=== PATIENT | female | born 1990 | race Caucasian/White ===

== ENCOUNTER 2020-05-30 11:10 | Outpatient (CLI) | payer OTHER, SELFPAY ==
--- NOTE | 2020-05-30 11:33 | US_ITS ---
WS: [id number] EARLY OBSTETRICAL ULTRASOUND (<14 WEEKS). HISTORY: VERIFICATION COMPARISON: None available. Single intrauterine gestational sac is identified. Cardiac activity at 167 BPM. [place]-rump length clarita sures 2.9 cm which corresponds to a gestation of 9w5d. Normal-appearing yolk sac and amnion demonstra becky. No subchorionic hemorrhage. No free fluid. Normal size ovaries with no mass. Closed cervix is normal length at 3.8 cm. US/US OB <=14 wk fetus w transvag IMPRESSION: 1. Single intrauterine gestation of 9 weeks 5 days with an EDC of 12/28/2020. 2. Normal cardiac activity.
== END 2020-05-30 11:11 | disposition home or self-care (01) ==
LOC: RAD 11:29
PROVIDERS: PCP Family Medicine; Visit Provider Obstetrics & Gynecology
DX: Z34.91 Encounter for supervision of normal pregnancy, unspecified, first trimester (principal); Z3A.09 9 weeks gestation of pregnancy
CPT/HCPCS: 76801; 76817

== ENCOUNTER 2020-07-04 14:06 | Outpatient (CLI) | payer OTHER, SELFPAY ==
--- NOTE | 2020-07-04 14:14 | US_ITS ---
WS: [id number] ULTRASOUND OB LIMITED TECHNIQUE: Limited ultrasound examination of the fetus. LMP March 27, 2020 CLINICAL INFORMATION: ABSENT HEART TONES/ WELL BEING COMPARISON: May 30, 2020 FINDINGS: Cervix is closed measuring 3.4 cm. Estimated gestational age 14 weeks 1 day with estimated delivery 2020 Single interuterine gestation. Placental location is anterior. Placenta grade: 0. heart rate 150 BPM. US/[place] [id number] IMPRESSION: 1. Normal cardiac activity 150 bpm. 2. Cervix is closed measuring 3.4 cm.
== END 2020-07-04 14:07 | disposition home or self-care (01) ==
LOC: RAD 14:09
PROVIDERS: PCP Family Medicine; Visit Provider Family Medicine
DX: O36.8990 Maternal care for other specified fetal problems, unspecified trimester, not applicable or unspecified (principal)
CPT/HCPCS: 76816

== ENCOUNTER 2020-08-24 09:20 | Outpatient (CLI) | payer OTHER, SELFPAY ==
--- NOTE | 2020-08-24 09:30 | US_ITS ---
WS: [id number] OBSTETRICAL ULTRASOUND COMPLETE HISTORY: ANATOMY COMPARISON: 07/04/2020 and 05/30/2020 Single intrauterine gestation in breech presentation. Cervix is Closed and normal length. Cervical length is 3.7 cm. Normal amount of amniotic fluid surrounds the fetus. Placenta: Anterior, no previa or abruption. Placenta grade 1 Heart: 147 BPM. 4 chamber heart is identified. Outflow tracts. Normal. Anatomy: Intracranial structures and spine are normal. kidneys, stomach and urinary bladd er are unremarkable. Abdominal wall, three-vessel cord and cord insertion site are normal. 4 extremities are present. profile: Poorly visualized due to hands obscuring the face. Gender: Female. measurements: BPD = 5.2 cm = 21w5d HC = 19.5 cm = 21w5d AC = 15.3 cm =20 w4 d FL = 3.62 cm = 21w3d EFW: 397 g. Biometry is internally concordant. AGA by ultrasound: 21 weeks 3 days PAIGE by ultrasound: 01/01/2021 Appropriate growth since the first trimester ultrasound. US/US OB >= 14 weeks fetus [id number] IMPRESSION: 1. Single intrauterine gestation of 21 weeks 3 days with an PAIGE of 01/01/2021. Appropriate growth since the first trimester ultrasound. 2. Poor visualization of the face as the hands are obscuring the face. O therwise anatomy is negative.
== END 2020-08-24 09:21 | disposition home or self-care (01) ==
PROVIDERS: PCP Family Medicine; Visit Provider Family Medicine
DX: Z34.82 Encounter for supervision of other normal pregnancy, second trimester (principal); Z3A.21 21 weeks gestation of pregnancy
CPT/HCPCS: 76805

== ENCOUNTER 2020-09-24 16:19 | Emergency (ER) | payer OTHER, SELFPAY ==
[2020-09-24 16:39] VITALS: BP 134/85; PULSE 91; RESP 18; TEMP 37.1; O2SAT 99; BMI 31.6
--- NOTE | 2020-09-24 16:55 | XRR_ITS ---
PROCEDURE INFORMATION: Exam: XR Left Hand Exam date and time: 09/24/2020 5:08 PM Age: 30 years old Clinical indication: Injury or trauma; Other: Crushed left hand attn: Fifth digit; Bleeding/hemorrhage; Injury date: 09/24/2020 TECHNIQUE: Imaging protocol: XR Left hand. Views: 3 or more views. COMPARISON: No relevant prior studies available. FINDINGS: Bones/joints: Mildly displaced fracture through the terminal tuft of the left 5th finger. The other bones are intact and in normal alignment. Soft tissues: Soft tissue laceration or crush injury in the tip of the left 5th finger. XR/XR hand LT 2V [id number] IMPRESSION: 1. Left 5th terminal tuft fracture.
--- NOTE | 2020-09-24 17:10 | W.ED.WOUNDLC ---
HPI - Wound/Laceration General: Chief Complaint: Wound/Laceration Stated Complaint: left hand injury Time Seen by Provider: 09/24/20 17:04 History of Present Illness: HPI narrative: Patient is a 30-year-old 26-week female comes to the ED with a left hand injury. 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 She says that some dairy cows went through this gait and caused the other side of the gait to smash the tip of her fifth digit on the left hand. She describes her pain is mild but does have a laceration to the tip pad of her fifth digit. Associated symptoms: Denies chills, fever(s), nausea or vomiting Review of Systems Const: Denies: fever(s), chills or fatigue Eyes: Denies: change in vision or eye discomfort ENMT: Denies: throat pain, odynophagia, nasal discharge or nasal congestion Card: Denies: chest pain, palpitations, edema, swelling of feet/ankles, dyspnea on exertion or orthopnea Resp: Denies: dyspnea, productive cough or non-productive cough GI: Denies: abdominal pain, nausea, vomiting, diarrhea, constipation or hematochezia : Denies: flank pain, dysuria or hematuria Musc: Reports: extremity pain (left hand injury-distal end of 5th digit); Denies: neck pain, back pain or extremity swelling Skin/Breast: Denies: rash or new lesions Neuro: Denies: headache(s), numbness in extremities or weakness in extremities PFS ED PFSH: Social History Smoking and tobacco status: never smoked Second hand smoke exposure: No Alcohol intake: never Desire information about alcohol rehabilitation?: No Desire information about substance/drug rehabilitation?: No History of recent travel: No Current gender identity: Female Physical Exam Const: COMMON NORMALS: no acute distress, patient oriented x3, healthy appearing and alert GENERAL APPEARANCE: cooperative and comfortable HENMT: COMMON NORMALS: normocephalic HEAD & SCALP: normocephalic MOUTH: Normal oral and palatal mucosa present THROAT: posterior oropharynx normal and uvula midline Neck/C-Spine: COMMON NORMALS: supple GENERAL: Yes normal visual inspection Resp: COMMON NORMALS: normal respiratory effort, No retractions, No use of accessory muscles and clear to auscultation bilaterally AUSCULTATION: clear to auscultation bilaterally Cardio: COMMON NORMALS: regular rate, regular rhythm, S1 normal heart sound present, S2 normal heart sound present, No gallops present (Cardio), No clicks present (Cardio), No murmurs present (Cardio) and Peripheral pulses 2+ throughout RATE: regular rate RHYTHM: regular rhythm HEART SOUNDS: S1 normal heart sound present and S2 normal heart sound present PERIPHERAL PULSES: Peripheral pulses 2+ throughout GI: COMMON NORMALS: Normal to inspection, nondistended, normoactive bowel sounds present, Soft to palpation, non-tender and no masses PALPATION: Yes Soft to palpation : COMMON NORMALS: Yes no CVA tenderness BLADDER/KIDNEY EXAM: Yes no CVA tenderness Back/Pelvis: COMMON NORMALS: no CVA tenderness Extremity: NARRATIVE EXTREMITY EXAM: Left hand?fifth digit?patient has laceration to the pad of fifth digit tip. Laceration is superficial, linear and 1 cm in length. She has a subungual hematoma present but no other visible nail damage seen. Laceration appears clean. GENERAL: Yes normal exam except as noted Neuro: COMMON NORMALS: patient oriented x3 and moves all extremities SENSORIUM/ORIENTATION: Yes alert Skin: GENERAL SKIN EXAM: dry skin Procedures Laceration Laceration 1: Site: hand (Tip of 5th digit) Side (If applicable): left Size (cm): 1 Description: linear and clean Depth: simple, single layer Local Anesthetic: lidocaine 2% and other anesthetic (digital block used) Amount of anesthesia used (mL): 10 Pre-repair: irrigated extensively (With normal saline and cleaned with iodine as well.) Skin layer closed with: nylon Size (cm): 4-0 Number of sutures: 5 Technique: simple, interrupted Nerve Block Nerve Block 1: Time out performed: Yes Local Anesthetic: lidocaine 2% Amount of anesthesia used (mL): 10 Side: left Nerve Blocks: digital (5th digit) Procedure Successful: Yes Patient Tolerated Procedure: well Complications: none Course Vital Signs: Vital signs: Vital Signs Temperature 98.7 F 09/24/20 16:39 Pulse Rate 91 09/24/20 16:39 Respiratory Rate 15 09/24/20 17:44 Blood Pressure 134/85 09/24/20 16:39 Pulse Oximetry 99 09/24/20 16:39 MDM - Wound/Laceration MDM Narrative: Medical decision making narrative: Patient is a 30-year-old female comes to the ED with crush injury to distal end of fifth digit on left hand. Patient has a laceration on distal pad of fifth digit. X-ray of left hand shows distal phalanx tuft fracture. I performed a digital block on patient's fifth digit using lidocaine 2%. I then closed the laceration with 5 sutures. Patient tolerated procedure well and for further details see procedure notes. Patient was put on a prescription for Keflex and discharged home in a finger splint. She was told to follow-up with her PCP in 7 to 10 days to reexamine laceration and to get sutures removed. She was told to continue to follow-up for her distal phalanx fracture with PCP. Patient understood and agreed with plan. Imaging Data^: Xray Ortho: Attestation: I personally reviewed and interpreted this imaging study as follows: My impression: Left hand x-ray?patient has a 5th digit distal tuft fracture that is nondisplaced Discharge Plan Discharge Patient Disposition: Home Clinical Impression: Open fracture of tuft of distal phalanx of finger, Laceration Condition: Stable Prescriptions: New cephalexin 500 mg capsule 500 mg PO Q6H 7 Days Qty: 28 RF: 0 No Action [id number] [Bromfed DM] 2-30-10 mg/5 mL syrup 7.5 ml PO Q6H PRN (Reason: cold symptoms) Qty: 160 RF: 0 Discharge Orders: Discharge ED (Routine); Ordered 09/24/20 Ordered By: Joe Everett Referrals: Joe Dolan MD [Primary Care Provider] - Discharge Diet: Regular Discharge Activity: Limit activity as instructed Patient Instructions: Fractures - Phalanx (Finger), Suture Care (ED), Laceration (ED) Activity Restrictions/Additional Instructions: Take full course of antibiotics as prescribed. Keep splint on and limit activity with left hand until cleared by PCP. Only remove finger splint to rebandage finger. Keep laceration site clean and dry for the next 48 hours. Then after that you can clean and re-bandage daily. Watch for signs of infection such as redness, warmth, increased tenderness and puslike drainage. If you see the signs of infection return to the ED, urgent care or PCP for reevaluation. call your PCP to schedule a follow-up appointment for reevaluation and suture removal in about 10 days. Continue taking all home meds. Follow discharge plans as discussed. You can return to the ED if symptoms worsen. 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
[2020-09-24 17:44] VITALS: RESP 15
[2020-09-24] MEDS: cephALEXin 500 mg Capsule PO (18:16)
[2020-09-24] MEDS: HYDROcodone-acetaminophen 5-325 mg Tablet 1 TAB PO (18:17)
[2020-09-24] MEDS: lidocaine 2% INJ 20 mL INJECTION (18:17)
== END 2020-09-24 19:12 | disposition home or self-care (01) ==
PROVIDERS: Emergency Provider Physician Assistant; PCP Family Medicine
DX: O9A.212 Injury, poisoning and certain other consequences of external causes complicating pregnancy, second trimester (principal); S62.667B Nondisplaced fracture of distal phalanx of left little finger, initial encounter for open fracture; W23.0XXA Caught, crushed, jammed, or pinched between moving objects, initial encounter; Z3A.26 26 weeks gestation of pregnancy
CPT/HCPCS: 12001; 73120; 99283

== ENCOUNTER 2020-12-19 14:05 | Outpatient (CLI) | payer OTHER, SELFPAY ==
--- NOTE | 2020-12-19 14:15 | US_ITS ---
WS: [id number] ULTRASOUND OB LIMITED TECHNIQUE: Limited ultrasound examination of the fetus. CLINICAL INFORMATION: LARGE FOR GESTATION AGE FETUS COMPARISON: None. FINDINGS: Closed Cervix measures 3.1 cm Single interuterine gestation. presentation is cephalic Placental location is anterior. Placenta grade: 2 heart rate 147 BPM. CHIOMA 9.98 Anatomy: BDP: 9.2 cm = 37w1d HC: 33.4 cm = 38w2d AC: 35.7 cm = 39w5d FEMUR LENGTH: 7.5 cm = 38w1d Estimated weight: 3606 g EGA by ultrasound: 38w2d PAIGE by ultrasound: 12/31/2020 US/[place] [id number] IMPRESSION: 1. Single intrauterine gestation with cephalic presentation. 2. EGA by ultrasound: 38w2d 3. PAIGE by ultrasound: 12/31/2020 4. Cervix is long and closed. 5. CHIOMA 9.98, greater than the 5th percentile and below the median for gestatio nal age.
== END 2020-12-19 14:06 | disposition home or self-care (01) ==
LOC: US 14:12
PROVIDERS: PCP Family Medicine; Visit Provider Family Medicine
DX: O36.63X0 Maternal care for excessive fetal growth, third trimester, not applicable or unspecified (principal); Z3A.38 38 weeks gestation of pregnancy
CPT/HCPCS: 76816

== ENCOUNTER 2020-12-31 21:33 | Outpatient (CLI) | payer OTHER, SELFPAY ==
[2020-12-31 21:51] VITALS: BP 137/91; PULSE 100
[2020-12-31 21:54] VITALS: BMI 33.0
[2020-12-31 22:25] VITALS: BP 131/81; PULSE 92; TEMP 36.4
[2020-12-31 23:08] VITALS: BP 131/81; PULSE 92; TEMP 36.4
== END 2020-12-31 22:51 | disposition home or self-care (01) ==
LOC: OPOB 21:39 → OBGYN 21:40
PROVIDERS: PCP Family Medicine; Visit Provider Family Medicine
DX: O36.8190 Decreased fetal movements, unspecified trimester, not applicable or unspecified (principal); Z3A.00 Weeks of gestation of pregnancy not specified
CPT/HCPCS: 59025; 99211

== ENCOUNTER 2021-01-03 04:55 | Inpatient (IN) | payer OTHER, SELFPAY ==
[2021-01-03] VITALS (23 sets, daily range): BP systolic 115–135; BP diastolic 60–89; PULSE 60–83; RESP 17–18; TEMP 36.6–36.9; O2SAT 95–100; BMI 33.0
--- NOTE | 2021-01-03 06:40 | P.HP_ITS ---
Providers/Chief Complaint Admitting Physician: Joe Dolan MD Primary Care Provider: Joe Dolan MD Chief Complaint: History of Present Illness Clementina Krishnamurthy is a 30 year old at 40.2 weeks gestation by LMP consistent with 9-week ultrasound. Her is complicated by history of LGA infant weighing 10 pounds 8 ounces with prior section, low progesterone on supplementation in first trimester. The patient presents to labor and delivery for a scheduled section. She is in good health and denies any chest pains, shortness of breath, fever, nausea, vomiting, diarrhea, constipation. The patient cervix was closed thick and high upon presentation today. The patient has decided against having a bilateral tubal ligation. Medications/Allergies Home Medications Medication Instructions Recorded Confirmed Last Taken Type vit [id number] pkg PO 01/03/21 1 Day Ago History [ + DHA] ~01/02/21 Allergies Allergy/AdvReac Type Severity Reaction Status Date / Time No Known Allergies Allergy Verified 01/03/21 05:47 PFSH Acute PFSH: Surgical History (Updated 01/03/21 @ 06:43 by Joe Dolan MD) History of laparoscopy Previous section Social History Smoking and tobacco status: never smoked Second hand smoke exposure: No Alcohol intake: never Desire information about alcohol rehabilitation?: No Desire information about substance/drug rehabilitation?: No History of recent travel: No Current gender identity: Female Female Reproductive History: : 4 Vitals/I&O/Wt Last Vital Signs Pulse 82 01/03/21 05:16 BP 135/89 01/03/21 05:16 Weight last 48 hrs Weight 244 lb Physical Exam Narrative: EXAM NARRATIVE: General: Alert and oriented x3 Eyes: Pupils equal round and reactive to light and accommodation Mouth: Mucous membranes moist, pharynx non-erythematous Cardiac: Regular rate and rhythm without murmurs Lungs: Clear to auscultation bilaterally without wheezes, crackles or rhonchi Abdomen: Soft, non-tender, fundus consistent with gestational age Extremities: +1 pitting edema in the bilateral lower extremities A&P Additional A&P Information The patient is doing well at this time. heart tones have a category 1 tracing. The patient is mariusz every 6 minutes and they are not painful. The patient has not been making any cervical change and is not a candidate for at this time. We will proceed with repeat low-transverse section without tubal ligation. I discussed the risks and complications with the patient and her and they are in agreement with proceeding with the current plan of care. All questions were answered. Attestations Medical Necessity Statement*: The patient be here for greater than 2 midnights due to routine intrapartum and management of labor and delivery. 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
[2021-01-03 06:55] LABS: Basophils % 0.4 %; Eosinophils # 0.1 10^3/uL (0.0-0.8); Eosinophils % 1.1 %; Hematocrit 40.7 % (37.0-47.0); Hemoglobin 13.2 g/dL (11.5-15.3); Lymphocytes # 2.5 10^3/uL (0.8-4.8); Mean Corpuscular HGB Conc 32.4 g/dL (30.0-36.0); Mean Corpuscular Hemoglobin 30.3 pg (28.0-34.0); Mean Corpuscular Volume 93.6 fl (81-99); Mean Platelet Volume 12.9 fL (7.4-10.4); Monocytes # 0.7 10^3/uL (0.2-0.9); Neutrophils # 5.94 10^3/uL (1.8-7.7); Neutrophils % 64.2 %; Nucleated Red Blood Cells % 0 %; Platelet Count 227 10^3/cmm (130-400); Red Blood Count 4.35 10^6/uL (4.1-5.3); Red Cell Distribution Width 13.2 % (12.1-15.1); White Blood Count 9.3 10^3/uL (4.0-10.0)
--- NOTE | 2021-01-03 07:29 | ANES.PREANE2 ---
Pre-Anesthetic Assessment Pre-Anesthetic Assessment: Height/Weight: Height 1.83 m Weight 110.677 kg Pulse BP 82 135/89 01/03/21 05:16 01/03/21 05:16 Preop Diagnosis: previous C/S Proposed Procedure: Operation Date: 01/03/21 08:00 Proposed Procedures p Section Repeat With Tubal(Not Applicable) - Joe Dolan MD Was Beta William taken within 24 hours: N/A Was Clonidine taken within 24 hours: N/A Social: Social History: No alcohol and No tobacco Exam: Pre-Anes Outpt Exam: alert, oriented x 3, clear to auscultation bilaterally and regular rate & rhythm Airway: Submandibular: WNL Cervical ROM: WNL MP: 1 Dentition: Full History/ROS: No significant history except as noted Pulmonary: Pulmonary: None reported CV/HEM: CV/HEM: None reported : : None reported Hepatic: Hepatic: None reported GI: GI: GERD Metabolic: Metabolic: None reported Musc/skel: Musc/skel: None reported Neuropsych: Neuropsych: None reported Anesthetic Plan: ASA status: 2 Anesthesia: Regional (specify below) Other: SAB Risk of > 500 ml blood loss (7ml/kg in children): Yes, adequate IV access and fluids planned PFSH Anesthesia PFSH: Surgical History (Updated 01/03/21 @ 06:43 by Joe Dolan MD) History of laparoscopy Previous section Social History Smoking and tobacco status: never smoked Second hand smoke exposure: No Alcohol intake: never Desire information about alcohol rehabilitation?: No Desire information about substance/drug rehabilitation?: No History of recent travel: No Current gender identity: Female Female Reproductive History: : 4 Data Anesthesia CBC & Chem 7: 01/03/21 05:00 Other Labs: Laboratory Results - last 48 hr 01/03/21 05:00 WBC 9.3 RBC 4.35 Hgb 13.2 Hct 40.7 MCV 93.6 MCH 30.3 MCHC 32.4 RDW 13.2 Plt Count 227 MPV 12.9 H Neut % (Auto) 64.2 Lymph % (Auto) 27.0 [place] % (Auto) 7.0 Eos % (Auto) 1.1 Baso % (Auto) 0.4 Neut # (Auto) 5.94 Lymph # (Auto) 2.5 [place] # (Auto) 0.7 Eos # (Auto) 0.1 Baso # (Auto) 0.0 Nucleated RBC % (auto) 0 Nucleated RBCs # 0.0 Cardiac Studies: No Data to Display
[2021-01-03] MEDS: lactated ringers 1,000 ML 999 ML IV (07:31)
[2021-01-03] MEDS: citric acid-sodium citrate 30 mL UDC PO (07:44)
[2021-01-03] MEDS: metoclopramide 5 mg/mL SDV 2 mL 10 MG IVP (07:44)
[2021-01-03] MEDS: famotidine 20 mg/2 mL INJ IVP (07:45)
--- NOTE | 2021-01-03 09:52 | PM.OP ---
Operative Report Date of procedure: January 03, 2021 Pre-op Diagnosis: previous C/S Pre-op Diagnosis: 1. Intrauterine at 40.2 weeks gestation 2. Prior low-transverse section here for repeat low-transverse section Post-op Diagnosis: 1. Intrauterine repeat low-transverse section at 40.2 weeks gestation 2. History of section 3. Very thin (transparent) lower uterine segment 4. Delivery of healthy female weighing 9 pounds 13 ounces with Apgars of 9 and 9 Post-op Findings: 1. The lower uterine segment was very thin prior to incision and the infant's head can be seen through the lower uterine segment. 2. Healthy female weighing 9 pounds 13 ounces 3. Intact placenta with central umbilical cord insertion site. Procedure Done: Repeat low transverse section. Specimens removed/disposition: Placenta discarded Surgeon: Joe Dolan Anesthesia: Other (Spinal) Estimated blood loss (mL): 450 Complications: None Condition: stable Disposition: floor Brief History: Clementina is a 30-year-old status post repeat low transverse section at 40.2 weeks gestation. Her is complicated by prior low-transverse section. She presented for a scheduled repeat low-transverse section. Procedure: After informed consent was obtained, the patient was taken to the operating room and the patient was prepped and draped in a normal sterile fashion in the dorsal supine position. A spinal epidural was placed and adequate anesthesia was confirmed. At 8:23 AM on 01/03/2021, a Pfannenstiel skin incision was made and carried through to the underlying layer of fascia using a scalpel. The fascial incision was then extended laterally using curved Mayos. The fascia was then grasped with Peter clamps and the underlying rectus muscles were dissected off taking care to avoid injury to the underlying tissues. The peritoneum was entered bluntly with one digit. It was then bluntly. The vesicouterine peritoneum was over the incision site, so it was dissected bluntly. Upon retraction of this peritoneal layer, the lower uterine segment was transparent and the baby's head and hair could be visualized through the lower uterine segment. The bladder blade was placed. The uterine incision was made in the lower uterine segment in a transverse fashion with the scalpel at 8:29 AM. The amniotic membrane was entered bluntly and a small amount of clear fluid was noted. The infant's head delivered atraumatically without significant difficulty at 8:31 AM. There was 1 nuchal cord. The mouth and nose were suctioned. The rest of the infant delivered without difficulty. The infant was crying immediately upon delivery. The cord was clamped and cut and the infant was handed to the awaiting pediatric nurses. The placenta was then manually expressed. The uterus was then exteriorized from the abdomen and a wet lap was used to clear the uterus of clots and debris. The bladder blade was reinserted and the uterine incision was closed using 0 chromic in a running locking fashion. A second layer of the same suture was used in the same manner. Excellent hemostasis was obtained. Next the posterior cul-de-sac was inspected and was cleared of any blood. The uterus was then placed back into the abdomen. The gutters were cleared of any further clots and debris and the uterine incision was again inspected and hemostasis was noted. The subfascial tissue was inspected for hemostasis and the peritoneum was re-approximated using 2-0 plain in a running fashion. The fascia was then re-approximated using 0 Vicryl in a running fashion. The subcutaneous tissue was inspected for hemostasis. Ignacia's fascia was then re-approximated using 3-0 plain in a running fashion. Good hemostasis was noted. The subcutaneous tissue was then re-approximated using a subcuticular stitch. The patient tolerated the procedure well and was recovered in stable condition. Estimated blood loss was 450 mL. Urine in the Mckay catheter was clear. The patient was taken to recovery in good condition. She was advised of the findings of the lower uterine segment and that it would not be recommended for her to attempt a in the future.
[2021-01-03] MEDS: morphine 4 mg/mL SDV 1 mL IVP (12:32)
[2021-01-03] MEDS: ondansetron 2 mg/ML SDV 2 mL 4 MG IVP (15:52)
[2021-01-03] MEDS: ketorolac 30 mg/mL INJ IVP ×2 (15:52→22:10)
[2021-01-03] MEDS: dextrose 5%-lactated ringers 1,000 ML 125 ML IV (16:25)
--- NOTE | 2021-01-03 16:26 | ANE.PACU2 ---
Inpatient post-anesthesia follow up: Airway intact: Yes Vital signs: Temperature 98.0 F Pulse Rate 60 Respiratory Rate 17 Blood Pressure 125/85 Pulse Oximetry 95 Oxygen Delivery Me thod Room Air Oxygen Flow Rate Fraction of Inspir ed Oxygen Hydration adequate: Yes Nausea and vomiting: No Pain level: 2 Mental status: Baseline
[2021-01-03] MEDS: ferrous sulfate EC 325 mg Tablet PO (18:51)
[2021-01-03] MEDS: docusate sodium 100 mg Capsule PO (18:51)
[2021-01-03 23:37] LABS: Hematocrit 36.8 % (37.0-47.0); Hemoglobin 11.9 g/dL (11.5-15.3); Mean Corpuscular HGB Conc 32.3 g/dL (30.0-36.0); Mean Corpuscular Hemoglobin 30.4 pg (28.0-34.0); Mean Corpuscular Volume 94.1 fl (81-99); Mean Platelet Volume 11.6 fL (7.4-10.4); Platelet Count 202 10^3/cmm (130-400); Red Blood Count 3.91 10^6/uL (4.1-5.3); Red Cell Distribution Width 13.2 % (12.1-15.1); White Blood Count 12.7 10^3/uL (4.0-10.0)
[2021-01-04] VITALS (7 sets, daily range): BP systolic 118–137; BP diastolic 60–85; PULSE 61–813; RESP 17–18; O2SAT 98–100
[2021-01-04] MEDS: oxyCODONE-APAP 5-325 mg Tablet PO ×3 (03:28→20:00)
[2021-01-04] MEDS: docusate sodium 100 mg Capsule PO ×2 (09:29→20:03)
[2021-01-04] MEDS: prenatal vitamin Capsule 1 CAP PO (09:29)
[2021-01-04] MEDS: acetaminophen 325 mg Tablet 650 MG PO (16:38)
--- NOTE | 2021-01-04 16:40 | P.PN_ITS ---
Subjective Subjective: Interval history: The patient is doing well at this time. She is having pain related to her section. The pain medications are managing her pain moderately well. She has been ambulating, voiding and passing gas. She is tolerating food by mouth. Vitals/I&O/Wt Last Vital Signs Temp 98.4 F 01/03/21 22:00 Pulse 64 01/04/21 10:00 Resp 17 01/04/21 10:00 BP 124/78 01/04/21 10:00 Pulse Ox 100 01/04/21 03:22 01/04/21 01/04/21 01/04/21 06:59 14:59 22:59 Intake Total 1980 / 2715.417 Output Total 1600 / 2450 Balance 380 / 265.417 Weight last 48 hrs Weight 244 lb Physical Exam Narrative: EXAM NARRATIVE: General: Alert and oriented x3 Cardiac: Regular rate and rhythm without murmurs Lungs: Clear to auscultation bilaterally without wheezes, crackles or rhonchi Abdomen: Soft, moderate diffuse tenderness. Incision is clean and dry without signs of infection or dehiscence. Extremities: +1 pitting edema in the bilateral lower extremities Urinary Catheter Management^: Mckay: Cath Placed During This Visit: yes, but has since been removed by the nurse Reason for Continuing Indwelling Catheter: Decision to DC Catheter Urinary Catheter Date of Insertion: 01/03/21 Urinary Catheter Time of Insertion: 08:00 Date Urinary Catheter Removed: 01/03/21 Time Urinary Catheter Discontinued: 21:40 Data : 01/03/21 23:15 A&P Additional A&P Information The patient is doing well we will continue with inpatient care as we manage her pain. The patient is ambulating and voiding. She is tolerating food by mouth. Overall she is showing signs of improvement. We will plan for discharge home tomorrow if she continues to improve. Routine discharge instructions were discussed with the patient and all questions were answered. The patient is in agreement with the current plan of care. Attestations Medical Necessity Statement*: The patient continues need inpatient care as she continues to recover after section. I expect her stay to cross 2 midnights. 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
[2021-01-04] MEDS: ibuprofen 800 mg tablet PO (21:15)
[2021-01-05 04:48] VITALS: TEMP 37
--- NOTE | 2021-01-05 08:27 | PM.DCS ---
Discharge Providers Date of Admission: 01/03/21 04:55 Date of Discharge: January 05, 2021 Attending Provider at Admission: Joe Dolan MD Attending Provider at Discharge: Joe Dolan MD Primary Care Provider: Joe Dolan MD Diagnoses at Discharge Other Information Additional DC diagnoses/information: 1. Intrauterine status post repeat low-transverse section at 40.2 weeks gestation 2. History of section 3. Very thin (transparent) lower uterine segment 4. Delivery of healthy female weighing 9 pounds 13 ounces with Apgars of 9 and 9 Reason for Visit Reason for Visit: Hospital Course Hospital Course Clementina Krishnamurthy is a 30 year old G4 now P2 s/p rLTCS at 40.2 weeks gestation by LMP consistent with 9-week ultrasound. Her was complicated by history of LGA infant weighing 10 pounds 8 ounces with prior section, low progesterone on supplementation in first trimester. The patient presented for a scheduled repeat low-transverse section. The patient's surgery was uncomplicated other than having a thin transparent lower uterine segment. 2 layers were used to close the uterine incision. I recommended to the patient that she does not try for a in the future. I recommended that she wait minimum 1 year before becoming again. Currently the patient is doing well. She is ambulating, voiding, passing gas and tolerating food by mouth. Her pain is moderately well controlled. She would like to go home today. Routine discharge instructions were discussed. All questions were answered. The patient and her are in agreement with the current plan of care. Physical Exam Narrative: EXAM NARRATIVE: General: Alert and oriented x3 Cardiac: Regular rate and rhythm without murmurs Lungs: Clear to auscultation bilaterally without wheezes, crackles or rhonchi Abdomen: Soft, moderate diffuse tenderness. Incision is clean and dry without signs of infection or dehiscence. Extremities: +1 pitting edema in the bilateral lower extremities Urinary Catheter Management^: Mckay: Cath Placed During This Visit: yes, but has since been removed by the nurse Reason for Continuing Indwelling Catheter: Decision to DC Catheter Urinary Catheter Date of Insertion: 01/03/21 Urinary Catheter Time of Insertion: 08:00 Date Urinary Catheter Removed: 01/03/21 Time Urinary Catheter Discontinued: 21:40 Discharge Data Vitals: Last Vital Signs Temp 98.6 F 01/05/21 04:48 Pulse 813 H 01/04/21 22:00 Resp 18 01/04/21 20:00 BP 132/85 01/04/21 22:00 Pulse Ox 98 01/04/21 22:00 Discharge Plan Discharge Patient Disposition: Home Condition: Good Prescriptions: New oxycodone-acetaminophen 5-325 mg Tablet 1 - 2 tab PO Q6H PRN (Reason: Moderate To Severe Pain) Qty: 30 RF: 0 ferrous sulfate 325 mg (65 mg iron) Tablet,Delayed Release (Dr/Ec) 325 mg PO BIDWM Qty: 30 RF: 0 ibuprofen 800 mg Tablet 800 mg PO TID Qty: 60 RF: 0 Continued + DHA 28 mg iron- 975 mcg-200 mg Combo Pack PO RF: 0 Discharge Orders: Discharge Order (Routine); Ordered 01/05/21 Ordered By: Joe Dolan Referrals: Joe Dolan MD [Primary Care Provider] - 01/07/21 Discharge Diet: Usual diet Discharge Activity: Limit activity as instructed Patient Instructions: Opioid Safety Activity Restrictions/Additional Instructions: Do not lift anything heavier than your baby in the carseat for the first 3 weeks, then gradually increase. If you have any concern for infection in your incision site, please seek immediate medical attention. Nothing per vagina for 6 weeks. Discharge Attestations Time Spent in Discharge Care*: greater than 30 min Quality Metrics Clinical Quality Measures During this hospital stay, did patient experience: None Coding Level of Care Code Acute Chg FW DC note
[2021-01-05] MEDS: prenatal vitamin Capsule 1 CAP PO (08:32)
[2021-01-05] MEDS: ibuprofen 800 mg tablet PO (08:32)
[2021-01-05] MEDS: docusate sodium 100 mg Capsule PO (08:32)
[2021-01-05 08:35] VITALS: RESP 17
[2021-01-05] MEDS: oxyCODONE-APAP 5-325 mg Tablet PO (08:35)
[2021-01-05 09:00] VITALS: BP 125/89; PULSE 130; PULSE 69; RESP 40
[2021-01-05 11:50] VITALS: BP 133/80; PULSE 73; RESP 18; TEMP 36.8; O2SAT 98
[2021-01-05 12:00] VITALS: BP 130/78; PULSE 120; RESP 17; RESP 40; TEMP 36.9; O2SAT 98
== END 2021-01-05 12:00 | disposition home or self-care (01) | DRG 788 ==
PROVIDERS: Admitting Provider Family Medicine; PCP Family Medicine; Visit Provider Family Medicine
PROC: 10D00Z1 Extraction of Products of Conception, Low, Open Approach (ICD-10-PCS; CPT 59514; principal; 2021-01-03 08:00)
DX: O34.211 Maternal care for low transverse scar from previous cesarean delivery (principal); Z3A.40 40 weeks gestation of pregnancy; Z37.0 Single live birth; O69.2XX0 Labor and delivery complicated by other cord entanglement, with compression, not applicable or unspecified
CPT/HCPCS: 36415; 59025; 59409; 85025; 85027; 96374; 96375; 98960; 99211; J0690; J1885; J2270; J2274; J2370; J2405; J2765; J3490; J7030

== ENCOUNTER → 2021-10-03 00:01 | Outpatient (BNVA) | payer OTHER, SELFPAY ==
[2021-10-06 22:52] LABS: Progesterone 19.12 ng/mL
== END ==
PROVIDERS: PCP Family Medicine; Visit Provider Family Medicine
DX: Z34.80 Encounter for supervision of other normal pregnancy, unspecified trimester (principal)
CPT/HCPCS: 84144; 84443; 84702; 85025; 86592; 86762; 87086; 87389; 87624

== ENCOUNTER → 2021-10-31 16:26 | Outpatient (BNVA) | payer OTHER, SELFPAY | PROVIDERS: PCP Family Medicine; Visit Provider Family Medicine | DX: Z34.00 Encounter for supervision of normal first pregnancy, unspecified trimester (principal); Z3A.00 Weeks of gestation of pregnancy not specified | CPT/HCPCS: 80307; 84144; 84443; 86900; 87340 ==

== ENCOUNTER → 2021-12-05 10:46 | Outpatient (BNVA) | payer OTHER, SELFPAY | PROVIDERS: PCP Family Medicine; Visit Provider Family Medicine | DX: R79.89 Other specified abnormal findings of blood chemistry (principal); Z34.90 Encounter for supervision of normal pregnancy, unspecified, unspecified trimester; E03.9 Hypothyroidism, unspecified | CPT/HCPCS: 84439; 84443; 84481 ==

== ENCOUNTER → 2022-03-07 10:08 | Outpatient (BNVA) | payer OTHER, SELFPAY | PROVIDERS: PCP Family Medicine; Visit Provider Family Medicine | DX: Z34.80 Encounter for supervision of other normal pregnancy, unspecified trimester (principal) | CPT/HCPCS: 82950 ==

== ENCOUNTER → 2022-04-07 10:50 | Outpatient (BNVA) | payer OTHER, SELFPAY | PROVIDERS: PCP Family Medicine; Visit Provider Family Medicine | DX: Z34.80 Encounter for supervision of other normal pregnancy, unspecified trimester (principal); Z51.81 Encounter for therapeutic drug level monitoring | CPT/HCPCS: 85025 ==

== ENCOUNTER 2022-05-06 15:20 | Outpatient (CLI) | payer OTHER, SELFPAY ==
[2022-05-06] VITALS (10 sets, daily range): BP systolic 112–132; BP diastolic 56–80; PULSE 91–101; RESP 15; TEMP 36.4; BMI 34.9
--- NOTE | 2022-05-06 16:03 | USR_ITS ---
PROCEDURE INFORMATION: Exam: US , Limited Exam date and time: 05/06/2022 4:19 PM Age: 31 years old Clinical indication: complicated by abdominal or pelvic pain; Left upper quadrant; Third trimester (=28 weeks 0 days); Gestational age or lmp: 35; ; Prior surgery; Surgery date: 6+ months; Surgery type: ; Additional info: Placenta evaluation, thickness of anterior uterine segment. , Patient is a repeat c/s x 2 with HX of previous uterine LABS AND CLINICAL REPORTS: Last menstrual period start date: 09/01/2021 Gestational age (Established): 35 w 2 d Estimated due date (Established): 06/08/2022 TECHNIQUE: Imaging protocol: Real-time ultrasound of the maternal uterus with image documentation. Exam focused on the clinical indication. COMPARISON: US OB <= 14 weeks fetus [id number] 10/17/2021 9:47 AM FINDINGS: Gestation: Intrauterine gestation. heart rate: 144 bpm presentation: Cephalic Placenta: Fundal grade 0 placenta without previa. Amniotic fluid: Amniotic fluid volume is normal. Amniotic fluid index: CHIOMA is 10.2 cm. US/US OB limited [id number] IMPRESSION: Live intrauterine gestation.
[2022-05-06 16:28] LABS: Bilirubin Urine Neg (Negative); Blood Urine Neg (Negative); Glucose Urine UA Norm (Normal); Ketones Urine Negative (Negative); Leukocyte Esterase Urine Negative (Negative); Nitrate Urine Negative (Negative); Protein Urine Neg (Negative); Urine Appearance Clear (CLEAR); Urine Color Yellow (Yellow); Urobilinogen Urine Norm (Negative); pH Urine 7 (5-7)
[2022-05-06 16:29] LABS: Add Urine Culture? No; RBC Urine 0-4 /hpf (0-2); Squamous Epithelial Cell Urine 0-4 /hpf (0-5)
== END 2022-05-06 17:51 | disposition home or self-care (01) ==
LOC: OPOB 15:31 → OBGYN 15:33
PROVIDERS: PCP Family Medicine; Visit Provider Family Medicine
DX: O26.899 Other specified pregnancy related conditions, unspecified trimester (principal); Z3A.00 Weeks of gestation of pregnancy not specified; R10.9 Unspecified abdominal pain
CPT/HCPCS: 59025; 76815; 81001; 99211

== ENCOUNTER 2022-05-13 12:39 | Outpatient (CLI) | payer OTHER, SELFPAY | END 2022-05-13 12:40 | disposition home or self-care (01) | LOC: OPOB 06-04 12:40 | PROVIDERS: PCP Family Medicine; Visit Provider Family Medicine | DX: O26.899 Other specified pregnancy related conditions, unspecified trimester (principal); Z3A.00 Weeks of gestation of pregnancy not specified | CPT/HCPCS: 87081; A6260 ==

== ENCOUNTER 2022-06-02 07:12 | Inpatient (IN) | payer OTHER, SELFPAY ==
[2022-06-02] VITALS (29 sets, daily range): BP systolic 112–134; BP diastolic 56–81; PULSE 69–95; RESP 15–18; TEMP 36.5–36.7; O2SAT 99–100; BMI 34.9
[2022-06-02] MEDS: lactated ringers 1,000 ML 999 ML IV (07:45)
[2022-06-02 07:57] LABS: Basophils % 0.2 %; Eosinophils # 0.1 10^3/uL (0.0-0.8); Eosinophils % 1.3 %; Hematocrit 36.3 % (37.0-47.0); Hemoglobin 11.9 g/dL (11.5-15.3); Lymphocytes # 2.4 10^3/uL (0.8-4.8); Lymphocytes % 22.3 %; Mean Corpuscular HGB Conc 32.8 g/dL (30.0-36.0); Mean Corpuscular Hemoglobin 30.5 pg (28.0-34.0); Mean Corpuscular Volume 93.1 fl (81-99); Mean Platelet Volume 10.9 fL (7.4-10.4); Monocytes # 0.8 10^3/uL (0.2-0.9); Monocytes % 7.6 %; Neutrophils % 68.1 %; Nucleated Red Blood Cells % 0 %; Platelet Count 259 10^3/cmm (130-400); Red Cell Distribution Width 12.9 % (12.1-15.1); White Blood Count 10.7 10^3/uL (4.0-10.0)
--- NOTE | 2022-06-02 08:30 | ANES.PREANE2 ---
Pre-Anesthetic Assessment Height/Weight: Height 1.8 m Weight 113.852 kg Pulse BP O2 Del Method 95 133/75 06/02/22 08:26 06/02/22 08:26 06/02/22 07:20 Preop Diagnosis: previous C/S Operation Date: 06/02/22 09:00 Proposed Procedures p Section W?BTL [id number](Bilateral) - Joe Dolan MD Familial anesthetic complications: PONV Was Beta William taken within 24 hours: N/A Was Clonidine taken within 24 hours: N/A Last intake: drink 0000 06/02/22 meal- dinner 06/01/22 Social No alcohol and No tobacco Airway Submandibular: within normal limits Cervical ROM: within normal limits Mallampati: Class II Dentition: full History/ROS No significant history except as noted and No significant complaints Anesthetic Plan ASA status: 2 Anesthesia: Regional (specify below) (SAB) Other Pertinent Information NO REPORTED MEDICAL HX. Medications/Allergies Home Medications Medication Instructions Recorded Confirmed Last Taken Type vits,calcium 91-iron 28 pkg PO 01/03/21 05/28/22 1 Day Ago History mg-folic 975 mcg-dha 200 mg oral ~06/01/22 pack ( + DHA) Allergies Allergy/AdvReac Type Severity Reaction Status Date / Time No Known Allergies Allergy Verified 06/02/22 07:27 [facility] Anesthesia Surgical History History of laparoscopy Previous section Social History Smoking and tobacco status: never smoked Second hand smoke exposure: No Alcohol intake: never Desire information about alcohol rehabilitation?: No Desire information about substance/drug rehabilitation?: No History of recent travel: No Current gender identity: Female Female Reproductive History : 5 Data Anesthesia 06/02/22 07:28 Short CBC 06/02/22 Range/Units 07:28 WBC 10.7 H (4.0-10.0) 10^3/uL Hgb 11.9 (11.5-15.3) g/dL Hct 36.3 L (37.0-47.0) % MCV 93.1 (81-99) fl Plt Count 259 (130-400) 10^3/cmm Neut % (Auto) 68.1 % Neut # (Auto) 7.30 (1.8-7.7) 10^3/uL Cardiac Studies: No Data to Display
[2022-06-02] MEDS: citric acid-sodium citrate 30 mL UDC PO (08:42)
[2022-06-02] MEDS: famotidine 20 mg/2 mL INJ IVP (08:43)
[2022-06-02] MEDS: metoclopramide 5 mg/mL SDV 2 mL 10 MG IVP (08:43)
--- NOTE | 2022-06-02 08:43 | P.HP_ITS ---
Providers/Chief Complaint Admitting Physician: Joe Dolan MD Primary Care Provider: Joe Dolan MD Chief Complaint: repeat History of Present Illness Clementina Krishnamurthy is a 31 year old @ 39.1 weeks by 6 wk US inconsistent with LMP. c/b h/o LGA (10-8) with pLTCS and rLTCS with transparent window. The patient is feeling well today. She denies any vaginal bleeding, leakage of fluid, abdominal pain, chest pain, shortness of breath, nausea, vomiting, diarrhea, constipation, fever, cough. The patient confirms that she would like to proceed with a repeat low-transverse section with bilateral tubal ligation. Review of Systems Narrative: See HPI Medications/Allergies Home Medications Medication Instructions Recorded Confirmed Last Taken Type vits,calcium 91-iron 28 pkg PO 01/03/21 05/28/22 1 Day Ago History mg-folic 975 mcg-dha 200 mg oral ~06/01/22 pack ( + DHA) Allergies Allergy/AdvReac Type Severity Reaction Status Date / Time No Known Allergies Allergy Verified 06/02/22 07:27 PFSH Acute PFSH: Surgical History History of laparoscopy Previous section Social History Smoking and tobacco status: never smoked Second hand smoke exposure: No Alcohol intake: never Desire information about alcohol rehabilitation?: No Desire information about substance/drug rehabilitation?: No History of recent travel: No Current gender identity: Female Female Reproductive History: : 5 Vitals/I&O/Wt Last Vital Signs Pulse 93 06/02/22 08:41 BP 132/71 06/02/22 08:41 O2 Del Method 06/02/22 07:20 Weight last 48 hrs Weight 251 lb Physical Exam Narrative: General: Alert and oriented x3 Eyes: Pupils equal round and reactive to light and accommodation Mouth: Mucous membranes moist, pharynx non-erythematous Cardiac: Regular rate and rhythm without murmurs Lungs: Clear to auscultation bilaterally without wheezes, crackles or rhonchi Abdomen: Soft, non-tender, fundus consistent with gestational age. No signs of infection over prior scar. Extremities: Trace edema in the bilateral lower extremities Data 06/02/22 07:28 A&P Assessment and plan (1) Supervision of normal intrauterine in multigravida: The patient is doing well at this time. She presents for a repeat low- transverse section with bilateral tubal ligation. She last ate prior to midnight. There are no concerns at this time. Continue with plan of care. Attestations Medical Necessity Statement*: The patient will be here for greater than 2 midnights due to routine intrapartum and management of labor and delivery. Coding Level of Care Code Acute Code for Chg Fwd Diagnoses Supervision of normal intrauterine in multigravida Z34.80
--- NOTE | 2022-06-02 10:53 | PM.OP ---
Operative Report Date of procedure: June 02, 2022 Pre-op diagnosis: 1. Intrauterine at 39.1 weeks gestation 2. History of low transverse section 3. History of large for gestational age Post-op diagnosis: 1. Intrauterine status post repeat low-transverse section with bilateral tubal ligation at 39.1 weeks gestation 2. History of low transverse section 3. History of large for gestational age infant 4. Delivery of healthy female weighing 9 pounds 1 ounce with Apgars of 9 and 9 Post-op findings: Thin lower uterine segment Procedure done: Repeat low-transverse section with bilateral tubal ligation Specimens removed/disposition: Bilateral tube segments sent to pathology Surgeon: Joe Dolan MD Estimated blood loss (mL): 500 IV fluids: 1000 Urine output: 200 Brief History: Clementina Krishnamurthy is a 31 year old G5 now P3 status post repeat low-transverse section with bilateral tubal ligation @ 39.1 weeks by 6 wk US inconsistent with LMP. c/b h/o LGA (10-8), h/o rLTCS with transparent window. The patient presents for a scheduled repeat low-transverse section with bilateral tubal ligation. She has been in her normal state of health without complications. She denies any chest pains, shortness of breath, vaginal bleeding, leakage of fluid, nausea, vomiting, diarrhea, constipation, fever. Procedure: After informed consent was obtained, the patient was taken to the operating room and the patient was prepped and draped in a normal sterile fashion in the dorsal supine position.? A spinal was placed and adequate anesthesia was obtained.? At 9:18 AM on 06/02/2022 a Pfannenstiel skin incision was made and carried through to the underlying layer of fascia using a scalpel.? The fascial incision was then extended laterally using curved Mayos.? The fascia was then grasped with Peter clamps and the underlying rectus muscles were dissected off taking care to avoid injury to the underlying tissues.? The peritoneum was entered bluntly with one digit.? It was then bluntly.? The bladder blade was placed and the vesicouterine peritoneum was well below the lower uterine segment of the uterus.? The uterine incision was made in the lower uterine segment in a transverse fashion with the scalpel at 9:24 AM.? The amniotic membrane was entered bluntly and a small amount of clear fluid was noted.? Uterine pressure was placed and the 's head delivered without complication at 9:25 AM.? There was 1 nuchal cord.? The mouth and nose were suctioned.? The rest of the infant delivered without difficulty.? The infant took a breath immediately upon delivery.? The cord was clamped and cut and the was handed to the awaiting pediatric nurses.? The placenta was then manually expressed at 9:26 AM.? The uterus was exteriorized from the abdomen.? A wet lap was used to clear the uterus of clots and debris.? The bladder blade was reinserted and the uterine incision was closed using 0 chromic in a running locking fashion.? The uterus was noted to be firm.? A second layer of the same suture was used in the same manner.? Excellent hemostasis was obtained. The bilateral fallopian tubes were located. Babcocks were used to raise the fallopian tube segment and a window was burned underneath the right fallopian tube. 0 chromic was used tie off a section of the tube on each side. A tube segment was removed using Metzenbaums. The remaining fallopian tube segment and was cauterized on each side. A modified Esmond technique was used. The fallopian tube segment was sent to pathology. This was repeated on the left side. Excellent hemostasis was noted. Next the posterior cul-de-sac was inspected and was cleared of any blood. The gutters were cleared of any further clots and debris and the uterine incision was again inspected and hemostasis was noted.? The subfascial tissue was inspected for hemostasis and the peritoneum was re-approximated using 2-0 plain in a running fashion.? The fascia was then re-approximated using 0 Vicryl in a running fashion.? The subcutaneous tissue was inspected for hemostasis.? Ignacia's fascia was then re-approximated using 3-0 plain in a running fashion.? Good hemostasis was noted.? The subcutaneous tissue was then re-approximated using a subcuticular stitch.? The patient tolerated the procedure well and was recovered in stable condition.? Estimated blood loss was 500 mL. Urine in the Mckay catheter was clear. The patient was taken to recovery in good condition. Related Problem List Diagnoses (1) Delivery by section: (2) Status post tubal ligation:
--- NOTE | 2022-06-02 16:30 | ANE.PACU2 ---
Inpatient post-anesthesia follow up: Airway intact: Yes Vital signs: Temperature 97.8 F Pulse Rate 83 Respiratory Rate 15 Blood Pressure 123/58 Pulse Oximetry 100 Oxygen Delivery Me thod Room Air Oxygen Flow Rate Fraction of Inspir ed Oxygen Hydration adequate: Yes Nausea and vomiting: No Pain level: 1 Mental status: Baseline
[2022-06-02] MEDS: docusate sodium 100 mg Capsule PO (17:00)
[2022-06-02] MEDS: ketorolac 30 mg/mL INJ IVP ×2 (17:00→23:51)
[2022-06-02] MEDS: ferrous sulfate EC 325 mg Tablet PO (20:50)
[2022-06-02 23:30] LABS: Hematocrit 36.6 % (37.0-47.0); Mean Corpuscular HGB Conc 32.8 g/dL (30.0-36.0); Mean Corpuscular Hemoglobin 30.8 pg (28.0-34.0); Mean Corpuscular Volume 93.8 fl (81-99); Mean Platelet Volume 10.5 fL (7.4-10.4); Platelet Count 247 10^3/cmm (130-400); Red Cell Distribution Width 12.5 % (12.1-15.1)
[2022-06-02] MEDS: oxyCODONE-APAP 5-325 mg Tablet PO (23:51)
[2022-06-03] VITALS (8 sets, daily range): BP systolic 120–125; BP diastolic 62–73; PULSE 74–87; RESP 16–17; TEMP 36.4; O2SAT 97–99
[2022-06-03] MEDS: ketorolac 30 mg/mL INJ IVP (05:45)
--- NOTE | 2022-06-03 08:45 | PM.PN ---
Subjective Subjective: The patient is doing well at this time. She is ambulating, voiding, passing gas and tolerating food by mouth. Her pain is well controlled. Her bleeding is slowing down well. Vitals/I&O/Wt Last Vital Signs Temp 97.6 F 06/03/22 00:05 Pulse 81 06/03/22 04:22 Resp 18 06/02/22 23:51 BP 121/65 06/03/22 04:22 Pulse Ox 99 06/03/22 00:05 O2 Del Method 06/02/22 11:23 06/02/22 06/03/22 06/03/22 22:59 06:59 14:59 Intake Total 1000 / 2000 Output Total 700 / 700 1800 / 2500 Balance -700 / 300 -800 / -500 Weight last 48 hrs Weight 251 lb Physical Exam Narrative: General: Alert and oriented x3 Cardiac: Regular rate and rhythm without murmurs Lungs: Clear to auscultation bilaterally without wheezes, crackles or rhonchi Abdomen: Soft, mild tenderness over uterus. The uterus is firm and 2 cm below the umbilicus. Incision is clean and dry without signs of infection or dehiscence. Extremities: +1 edema in the bilateral lower extremities Urinary Catheter Management: Mckay Latex: Cath Placed During This Visit: yes, but has since been removed by the nurse Reason for Continuing Indwelling Catheter: Decision to DC Catheter Urinary Catheter Date of Insertion: 06/02/22 Urinary Catheter Time of Insertion: 19:10 Date Urinary Catheter Removed: 06/02/22 Time Urinary Catheter Discontinued: 18:55 Data 06/02/22 23:06 A&P Assessment and plan (1) Status post tubal ligation: (2) Delivery by section: The patient is doing well without signs of complications at this time. We will continue with routine care and plan for discharge home tomorrow as long as she continues to do well. All questions were answered. Continue with routine care. Attestations Medical Necessity Statement*: The patient will be here for greater than 2 midnights due to routine intrapartum and management of labor and delivery. Coding Level of Care Code Acute Code for Chg Fwd Diagnoses Status post tubal ligation Z98.51 Delivery by section
[2022-06-03] MEDS: prenatal vitamin Capsule 1 CAP PO (10:06)
[2022-06-03] MEDS: docusate sodium 100 mg Capsule PO ×2 (10:06→20:32)
[2022-06-03] MEDS: oxyCODONE-APAP 5-325 mg Tablet PO ×3 (10:06→20:21)
[2022-06-03] MEDS: ferrous sulfate EC 325 mg Tablet PO (20:31)
[2022-06-03] MEDS: ibuprofen 800 mg tablet PO (20:31)
[2022-06-04 04:34] VITALS: RESP 16
[2022-06-04] MEDS: oxyCODONE-APAP 5-325 mg Tablet PO (04:34)
[2022-06-04 04:38] VITALS: BP 146/91; PULSE 82; RESP 15; TEMP 36.8
[2022-06-04 07:15] VITALS: BP 137/86; PULSE 80; RESP 18; TEMP 36.4
--- NOTE | 2022-06-04 08:37 | P.DS_ITS ---
Discharge Providers Date of Admission: 06/02/22 07:12 Date of Discharge: June 04, 2022 Attending Provider at Admission: Joe Dolan MD Attending Provider at Discharge: Joe Dolan MD Primary Care Provider: Joe Dolan MD Diagnoses at Discharge Discharge Diagnosis (1) Status post tubal ligation: Status: Acute (2) Delivery by section: Status: Acute Other Information Additional DC diagnoses/information: 1.? Intrauterine status post repeat low-transverse section with bilateral tubal ligation at 39.1 weeks gestation 2.? History of low transverse section 3.? History of large for gestational age 4.? Delivery of healthy infant female weighing 9 pounds 1 ounce with Apgars of 9 and 9 Reason for Visit Reason for Visit: repeat Brief History: Clementina Krishnamurthy is a 31 year old G5 now P3 status post repeat low- transverse section with bilateral tubal ligation @ 39.1 weeks by 6 wk US inconsistent with LMP. c/b h/o LGA infant (10-8), h/o rLTCS with transparent window. The patient presented for a scheduled repeat low-transverse section with bilateral tubal ligation.? She had been in her normal state of health without complications upon presentation. Hospital Course Hospital Course The patient had a routine repeat low-transverse section with bilateral tubal ligation. The patient has had no complications during the surgery or afterwards. Her bleeding is slowing down well. Her pain is under good control. She is ambulating, voiding, passing gas and tolerating food by mouth. Routine discharge instructions were discussed and the patient is in agreement with discharge home at this time. She will follow-up with me next week in clinic. All questions were answered. Physical Exam Narrative: General: Alert and oriented x3 Cardiac: Regular rate and rhythm without murmurs Lungs: Clear to auscultation bilaterally without wheezes, crackles or rhonchi Abdomen: Soft, mild tenderness over uterus. The uterus is firm and 2 cm below the umbilicus. Incision is clean and dry with minimal bloody discharge centrally without signs of infection or dehiscence. Extremities: +1 edema in the bilateral lower extremities Urinary Catheter Management: Mckay Latex: Cath Placed During This Visit: yes, but has since been removed by the nurse Reason for Continuing Indwelling Catheter: Decision to DC Catheter Urinary Catheter Date of Insertion: 06/02/22 Urinary Catheter Time of Insertion: 19:10 Date Urinary Catheter Removed: 06/02/22 Time Urinary Catheter Discontinued: 18:55 Discharge Data Studies Completed and Pending Pending at discharge Category Date Time Status Pathology: Surgical [PTH] Routine Pth 06/02/22 12:00 Received Laboratory Results WBC 13.0 10^3/uL (4.0-10.0) H 06/02/22 23:06 RBC 3.90 10^6/uL (4.1-5.3) L 06/02/22 23:06 Hgb 12.0 g/dL (11.5-15.3) 06/02/22 23:06 Hct 36.6 % (37.0-47.0) L 06/02/22 23:06 MCV 93.8 fl (81-99) 06/02/22 23:06 MCH 30.8 pg (28.0-34.0) 06/02/22 23:06 MCHC 32.8 g/dL (30.0-36.0) 06/02/22 23:06 RDW 12.5 % (12.1-15.1) 06/02/22 23:06 Plt Count 247 10^3/cmm (130-400) 06/02/22 23:06 MPV 10.5 fL (7.4-10.4) H 06/02/22 23:06 Neut % (Auto) 68.1 % 06/02/22 07:28 Lymph % (Auto) 22.3 % 06/02/22 07:28 [place] % (Auto) 7.6 % 06/02/22 07:28 Eos % (Auto) 1.3 % 06/02/22 07:28 Baso % (Auto) 0.2 % 06/02/22 07:28 Neut # (Auto) 7.30 10^3/uL (1.8-7.7) 06/02/22 07:28 Lymph # (Auto) 2.4 10^3/uL (0.8-4.8) 06/02/22 07:28 [place] # (Auto) 0.8 10^3/uL (0.2-0.9) 06/02/22 07:28 Eos # (Auto) 0.1 10^3/uL (0.0-0.8) 06/02/22 07:28 Baso # (Auto) 0.0 10^3/uL (0.0-0.1) 06/02/22 07:28 Nucleated RBC % (auto) 0 % 06/02/22 07:28 Nucleated RBCs # 0.0 /100WBC 06/02/22 07:28 Vitals Last Vital Signs Temp 98.2 F 06/04/22 04:38 Pulse 82 06/04/22 04:38 Resp 15 06/04/22 04:38 BP 146/91 06/04/22 04:38 Pulse Ox 97 06/03/22 20:21 O2 Del Method 06/02/22 11:23 Discharge Plan Discharge Patient Disposition: Home Condition: Good Prescriptions: New oxycodone-acetaminophen 5-325 mg Tablet 1 tab PO Q6H PRN (Reason: Moderate To Severe Pain) Qty: 20 0RF ibuprofen 800 mg Tablet 800 mg PO TID Qty: 60 0RF Continued + DHA 28 mg iron- 975 mcg-200 mg Combo Pack 1 pkg PO DAILY Discharge Orders: Discharge Order (Routine); Ordered 06/04/22 Ordered By: Joe Dolan Referrals: Joe Dolan MD [Primary Care Provider] - 4-7 days Discharge Diet: Regular Discharge Activity: Limit activity as instructed Patient Instructions: Opioid Safety Activity Restrictions/Additional Instructions: Do not lift anything heavier than your in the car seat for the first 3 weeks, then gradually increase. If you have any concern for infection in your incision site, please contact Dr. Dolan right away. Nothing per vagina for 6 weeks. Showers okay. Avoid baths for the first 6 weeks. Discharge Attestations Time Spent in Discharge Care*: greater than 30 min Quality Metrics Clinical Quality Measures [ No reported AMI, CVA or VTE this stay] Coding Level of Care Code Acute Chg FW DC note Diagnoses Status post tubal ligation Z98.51 Delivery by section
[2022-06-04] MEDS: docusate sodium 100 mg Capsule PO (10:15)
[2022-06-04] MEDS: prenatal vitamin Capsule 1 CAP PO (10:15)
[2022-06-04] MEDS: ferrous sulfate EC 325 mg Tablet PO (10:16)
[2022-06-04] MEDS: ibuprofen 800 mg tablet PO (10:16)
[2022-06-04 10:25] VITALS: BP 131/83; PULSE 96; RESP 18; TEMP 36.9
[2022-06-04 10:40] VITALS: BP 131/83; PULSE 96; RESP 18; TEMP 36.9
== END 2022-06-04 10:40 | disposition home or self-care (01) | DRG 785 ==
PROVIDERS: Admitting Provider Family Medicine; PCP Family Medicine; Visit Provider Family Medicine
PROC: 10D00Z1 Extraction of Products of Conception, Low, Open Approach (ICD-10-PCS; CPT 59514; principal; 2022-06-02 09:00)
DX: O34.211 Maternal care for low transverse scar from previous cesarean delivery (principal); Z3A.39 39 weeks gestation of pregnancy; Z37.0 Single live birth; O69.2XX0 Labor and delivery complicated by other cord entanglement, with compression, not applicable or unspecified; Z30.2 Encounter for sterilization
CPT/HCPCS: 36415; 51702; 59025; 59409; 85025; 85027; 88302; 96374; 96376; 99211; J1885; J2274; J2370; J2405; J2590; J2765; J3010; J3490; J7030; J7120

== ENCOUNTER → 2023-09-01 10:54 | Outpatient (BNVA) | payer OTHER, SELFPAY | PROVIDERS: PCP Family Medicine; Visit Provider Family Medicine | DX: Z51.81 Encounter for therapeutic drug level monitoring (principal); E03.9 Hypothyroidism, unspecified; Z00.00 Encounter for general adult medical examination without abnormal findings; Z13.220 Encounter for screening for lipoid disorders; R79.89 Other specified abnormal findings of blood chemistry | CPT/HCPCS: 80053; 80061; 82533; 84443; 85025; 87624 ==